=== PATIENT | male | born 1950 | race Caucasian/White ===

== ENCOUNTER 2020-01-18 10:36 | Outpatient (CLI) | payer MEDICARE, MEDICAID, SELFPAY ==
--- NOTE | 2020-01-24 16:55 | WPDPFTINT ---
PFT Interpretation PFT Interpretation: DOS: 01/18/2020 REQUESTING: Hanane Love NP REASON FOR TESTING: COPD PULMONARY FUNCTION TESTS Results are reproducible and reliable. Spirometry: FEV1 is 50% predicted, moderately decreased. FVC is 67%, moderately decreased. FEV1% is decreased consistent with airflow obstruction. [id number]% is 13%. No change with bronchodilator. Lung volumes: TLC 101, normal. RV increased 135% consistent with mild air trapping. Increased airway resistance. Diffusion: DLCO moderately decreased 51%. Flow volume loop: Severe scooping of the expiratory limb. IMPRESSION: Moderately severe obstructive ventilatory impairment, severe in the small airways, with mild air trapping and moderate diffusion impairment without response to bronchodilator. This pattern is consistent with emphysema. June Rodney MD
--- NOTE | 2020-01-24 17:18 | WPDSIXMINUTE ---
Six Minute Walk Six Minute Walk: DOS: 01/18/2020 REQUESTING: Hanane Love NP REASON FOR TESTING: COPD SIX MINUTE WALK This test was conducted per ATS guidelines. The initial saturation was 93% on room air with a pulse of 55. He walked until 4 minutes when he stopped due to left leg and hip pain, resting 30 seconds. At this point, the saturation was 96%, pulse was 78. He completed the walk without desaturation, and the saturation in recovery was 98%. Distance walked was 500 feet. IMPRESSION: This walk study shows no desaturation requiring supplemental oxygen. Distance walked is less than expected for his age. Walking was limited by left leg pain.
== END 2020-01-18 10:37 | disposition home or self-care (01) ==
PROVIDERS: Visit Provider Nurse Practitioner
DX: J44.9 Chronic obstructive pulmonary disease, unspecified (principal); R94.2 Abnormal results of pulmonary function studies
CPT/HCPCS: 94060; 94618; 94726; 94729